=== PATIENT | male | born 1980 | race Hispanic/Latino ===

== ENCOUNTER 2018-02-08 23:15 | Emergency (ER) | payer SELFPAY ==
[2018-02-08] MEDS ORDERED: NA CHLORIDE 0.9% 1,000 ML ONE (23:39)
[2018-02-08] MEDS ORDERED: ONDANSETRON 4 MG/2 ML VIAL ONE (23:39)
[2018-02-08] MEDS ORDERED: MORPHINE 4 MG/ML SYR ONE (23:39)
[2018-02-08 23:52] LABS: Absolute Lymphocytes (CBC) 2.5 K/uL (0.7-4.9); Absolute Monocytes 0.6 K/uL (0.1-1.3); Absolute Neutrophil 4.7 K/uL (1.8-8.0); Eosinophils % 7.9 % (0-4.4); Lymphocytes % 29.5 % (15.3-44.8); MCH 29.8 pg (27.0-35.0); MCV 87.2 fL (80-100); MPV 8.4 fL (7.6-11.3); Monocytes % 7.3 % (3.3-12.3); RBC Red Blood Cell Count 5.74 M/uL (4.33-5.43)
[2018-02-09 00:04] LABS: Albumin 4.1 g/dL (3.4-5.0); Bilirubin Direct 0.1 mg/dL (0-0.2); Bilirubin Total 0.3 mg/dL (0.2-1.0); Potassium 3.1 mmol/L (3.5-5.1); Protein, Total 8.3 g/dL (6.4-8.2)
[2018-02-09] MEDS ORDERED: LIDOCAINE VISCOUS 2% SOLN 15 ML UDC ONE (00:22)
[2018-02-09] MEDS ORDERED: MAGNE/ALUM HYDROXD 30 ML UCUP ONE (00:22)
--- NOTE | 2018-02-09 01:48 | ER ---
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 Denies any nausea, vomiting or diarrhea. Pt is diaphoretic and moaning in pain. Transition of care: patient was not received from another setting of care. Onset of symptoms was February 08, 2018 at 22:30. Risk Assessment: Do you want to hurt yourself or someone else? Patient reports no desire to harm self or others. Initial Sepsis Screen: Does the patient meet any 2 criteria? No. Patient's initial sepsis screen is negative. Does the patient have a suspected source of infection? No. Patient's initial sepsis screen is negative. Care prior to arrival: None. 23:20 Acuity: ARASH 3 Triage Assessment: 23:32 General: Appears distressed, uncomfortable, Behavior is cooperative, appropriate for fc age, anxious, restless. Pain: Complains of pain in abdomen Pain currently is 10 out of 10 on a pain scale. Pain began 1 hour ago. Is continuous. EENT: No deficits noted. Neuro: Level of Consciousness is awake, alert, obeys commands, Oriented to person, place, time, situation. Cardiovascular: No deficits noted. Respiratory: No deficits noted. GI: Abdomen is flat, distended, Bowel sounds present X 4 quads. Reports lower abdominal pain, upper abdominal pain, Patient currently denies constipation, diarrhea, nausea, vomiting. : No deficits noted. Derm: Skin is intact, Skin is diaphoretic, Skin is normal, Skin temperature is warm. Musculoskeletal: Circulation, motion, and sensation intact. Capillary refill < 3 seconds. 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 - Social history:: Smoking status: Patient/guardian denies using tobacco, Patient uses alcohol, on a daily basis. 1-2 a day. - Ebola Screening: : Patient negative for fever greater than or equal to 101.5 degrees Fahrenheit, and additional compatible Ebola Virus Disease symptoms Patient denies exposure to infectious person Patient denies travel to an Ebola-affected area in the 21 days before illness onset. Screenin:20 Abuse screen: Denies threats or abuse. Nutritional screening: No deficits noted. Tuberculosis screening: No symptoms or risk factors identified. Fall Risk None identified. Assessment: 02/09 00:44 Reassessment: Patient and/or family updated on plan of care and expected duration. Pain ea level reassessed. Patient is alert, oriented x 3, equal unlabored respirations, skin warm/dry/pink. 01:55 Reassessment: Patient and/or family updated on plan of care and expected duration. Pain ea level reassessed. Patient is alert, oriented x 3, equal unlabored respirations, skin warm/dry/pink. 02:55 Reassessment: Patient and/or family updated on plan of care and expected duration. Pain ea level reassessed. Patient is alert, oriented x 3, equal unlabored respirations, skin warm/dry/pink. Discharge instructions given to patient, verbalized the understanding of instruction. Vital Signs: 02/08 23:20 BP 211 / 139; Pulse 85; Resp 20; Temp 97.4(O); Pulse Ox 100% on R/A; Weight 78.47 kg (R); Height 5 ft. 4 in. (162.56 cm) (R); Pain 10/10; 02/09 00:43 BP 150 / 99; Pulse 100; Resp 18; Pulse Ox 99% on R/A; ea 02:45 BP 145 / 90; Pulse 80; Resp 18; Temp 97.2; Pulse Ox 99% ; Pain 3/10; ea 02/08 23:20 Body Mass Index 29.70 (78.47 kg, 162.56 cm) ED Course: 02/08 23:16 Patient arrived in ED. am2 23:20 Arm band placed on Patient placed in an exam room, on a stretcher. fc 23:20 Patient has correct armband on for positive identification. Bed in low position. Call light in reach. Side rails up X 1. Pulse ox on. NIBP on. 23:29 Moralez Julio, MD is Attending Physician. gs 23:30 Triage completed. 23:30 Inserted saline lock: 18 gauge in right antecubital area, using aseptic technique. ,using aseptic technique. per Mayte GALAN Blood collected. 23:47 Patient moved to [place] via wheelchair. kw1 23:53 CT Stone Protocol In Process Unspecified. EDMS 23:54 CT completed. Patient tolerated procedure well. Patient moved back from MO. kw1 02/09 00:10 Mayte Hansen RN is Primary Nurse. ea 01:47 Goldy Calixto MD is Referral Physician. gs 02:55 No provider procedures requiring assistance completed. IV discontinued, intact, ea bleeding controlled, No redness/swelling at site. Pressure dressing applied. Administered Medications: 02/08 23:35 Drug: NS 0.9% 1000 ml Route: IV; Rate: 1 bolus; Site: right antecubital; 23:35 Drug: morphine 4 mg Route: IVP; Site: right antecubital; 23:35 Drug: Zofran 4 mg Route: IVP; Site: right antecubital; 02/09 00:22 Drug: GI Cocktail without - (Maalox Suspension 30 ml, Lidocaine Liquid 2 % 15 ea ml) Route: PO; Outcome: 01:48 Discharge ordered by . gs 02:55 Discharged to home ambulatory, with friend. ea 02:55 Condition: improved 02:55 Discharge instructions given to patient, Instructed on discharge instructions, follow up and referral plans. medication usage, Demonstrated understanding of instructions, follow-up care, medications, Prescriptions given X 1. 03:01 Patient left the ED. ea Signatures: Dispatcher [employer] EDMS Sharee Yeung RN RN Kiki Quigley Elena, RN RN ea Starr, Gregory, MD MD RomanMaricruz freemanly kw1
--- NOTE | 2018-02-09 01:48 | EDPHYS ---
Physician Documentation [facility] Name: Clem Mendoza Age: 37 yrs Sex: Male : 1980 Arrival Date: 02/08/2018 Time: 23:16 Bed 5 Private MD: ED Physician Julio Moralez HPI: 02/09 01:49 This 37 yrs old Male presents to ER via Wheelchair with complaints of gs Abdominal Pain. 01:49 The patient presents with abdominal pain that is diffuse. Onset: The symptoms/episode gs began/occurred acutely, just prior to arrival. The symptoms do not radiate. Associated signs and symptoms: Pertinent positives: nausea and vomiting, Pertinent negatives: shortness of breath. 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 - Social history:: Smoking status: Patient/guardian denies using tobacco, Patient uses alcohol, on a daily basis. 1-2 a day. - Ebola Screening: : Patient negative for fever greater than or equal to 101.5 degrees Fahrenheit, and additional compatible Ebola Virus Disease symptoms Patient denies exposure to infectious person Patient denies travel to an Ebola-affected area in the 21 days before illness onset. ROS: 02/09 01:52 All other systems are negative. gs Exam: 01:52 Head/Face: Normocephalic, atraumatic. Eyes: Pupils equal round and reactive to light, gs extra-ocular motions intact. Lids and lashes normal. Conjunctiva and sclera are non-icteric and not injected. Cornea within normal limits. Periorbital areas with no swelling, redness, or edema. ENT: Nares patent. No nasal discharge, no septal abnormalities noted. Tympanic membranes are normal and external auditory canals are clear. Oropharynx with no redness, swelling, or masses, exudates, or evidence of obstruction, uvula midline. Mucous membranes moist. Neck: Trachea midline, no thyromegaly or masses palpated, and no cervical lymphadenopathy. Supple, full range of motion without nuchal rigidity, or vertebral point tenderness. No Meningismus. Chest/axilla: Normal chest wall appearance and motion. Nontender with no deformity. No lesions are appreciated. Cardiovascular: Regular rate and rhythm with a normal S1 and S2. No gallops, murmurs, or rubs. Normal PMI, no JVD. No pulse deficits. Respiratory: Lungs have equal breath sounds bilaterally, clear to auscultation and percussion. No rales, rhonchi or wheezes noted. No increased work of breathing, no retractions or nasal flaring. Back: No spinal tenderness. No costovertebral tenderness. Full range of motion. Skin: Warm, dry with normal turgor. Normal color with no rashes, no lesions, and no evidence of cellulitis. MS/ Extremity: Pulses equal, no cyanosis. Neurovascular intact. Full, normal range of motion. Neuro: Awake and alert, GCS 15, oriented to person, place, time, and situation. Cranial nerves II-XII grossly intact. Motor strength 5/5 in all extremities. Sensory grossly intact. Cerebellar exam normal. Normal gait. 01:52 Constitutional: The patient appears alert, awake, uncomfortable. 01:52 Abdomen/GI: Palpation: mild abdominal tenderness, in all quadrants, rebound tenderness, is not appreciated. 01:52 ECG was reviewed by the Attending Physician. Vital Signs: 02/08 23:20 BP 211 / 139; Pulse 85; Resp 20; Temp 97.4(O); Pulse Ox 100% on R/A; Weight 78.47 kg fc (R); Height 5 ft. 4 in. (162.56 cm) (R); Pain 10/10; 02/09 00:43 BP 150 / 99; Pulse 100; Resp 18; Pulse Ox 99% on R/A; ea 02:45 BP 145 / 90; Pulse 80; Resp 18; Temp 97.2; Pulse Ox 99% ; Pain 3/10; ea 02/08 23:20 Body Mass Index 29.70 (78.47 kg, 162.56 cm) MDM: 00:03 Patient medically screened. 01:52 Differential diagnosis: bowel obstruction, gastritis, gastroesophageal reflux disease, gs non-specific abd pain, Peptic Ulcer Disease. Data reviewed: vital signs, nurses notes. Response to treatment: the patient's symptoms have markedly improved after treatment, and as a result, I will discharge patient. 02/08 23:29 Order name: Basic Metabolic Panel; Complete Time: 00:47 02/08 23:29 Order name: CBC with Diff; Complete Time: 00:47 02/08 23:29 Order name: Hepatic Function; Complete Time: 00:47 02/08 23:29 Order name: Lipase; Complete Time: 00:47 02/08 23:29 Order name: CT Stone Protocol 02/08 23:29 Order name: IV Saline Lock; Complete Time: 23:32 02/08 23:29 Order name: Labs collected and sent; Complete Time: 23:36 02/09 00:49 Order name: EKG; Complete Time: 00:49 02/09 00:49 Order name: EKG - Nurse/Tech; Complete Time: 01:48 EC:52 Rate is 70 beats/min. Rhythm is regular. IA interval is normal. QRS interval is normal. gs T waves are Normal. No ST changes noted. Clinical impression: Normal ECG. Interpreted by me. Administered Medications: 02/08 23:35 Drug: NS 0.9% 1000 ml Route: IV; Rate: 1 bolus; Site: right antecubital; 23:35 Drug: morphine 4 mg Route: IVP; Site: right antecubital; 23:35 Drug: Zofran 4 mg Route: IVP; Site: right antecubital; 02/09 00:22 Drug: GI Cocktail without - (Maalox Suspension 30 ml, Lidocaine Liquid 2 % 15 ea ml) Route: PO; Disposition: 02/09/18 01:48 Discharged to Home. Impression: Abdominal and pelvic pain. - Condition is Stable. - Discharge Instructions: Abdominal Pain, Adult, [id number], Managing Your Hypertension. - Prescriptions for Pepcid 20 mg Oral Tablet - take 1 tablet by ORAL route every 12 hours for 10 days; 20 tablet. - Medication Reconciliation Form, Thank You Letter, Antibiotic Education, Prescription Opioid Use form. - Follow up: Goldy Calixto MD; When: 2 - 3 days; Reason: Re-evaluation by your physician. Signatures: Dispatcher [employer] EDMS Sharee Yeung RN RN fc Antunez, Elena, RN RN ea Starr, Gregory, MD MD Corrections: (The following items were deleted from the chart) 03:01 01:48 02/09/2018 01:48 Discharged to Home. Impression: Abdominal and pelvic pain. ea Condition is Stable. Forms are Medication Reconciliation Form, Thank You Letter, Antibiotic Education, Prescription Opioid Use. Follow up: Goldy Calixto; When: 2 - 3 days; Reason: Re-evaluation by your physician. gs
[2018-02-09] MEDS ORDERED: ACETAMINOPHEN 500 MG TAB ONE (02:46)
--- NOTE | 2018-02-09 09:01 | RAD REPORT ---
EXAM DESCRIPTION: CT - Stone Protocol - 02/09/2018 4:37 am CLINICAL HISTORY: Severe abdominal pain A preliminary report was provided at the time of the study and reviewed prior to final report. COMPARISON: None. TECHNIQUE: Axial [address] imaging of the abdomen and pelvis was performed without IV contrast. No IV contrast was given because of allergy, abnormal renal function, patient refusal or physician re quest. No oral contrast. All CT scans are performed using dose optimization technique as appropriate and may include automated exposure control or mA/KV adjustment according to patient size. FINDINGS: Interstitial markings are mildly prominent and there is some minimal hazy opacification of the alveoli in each posterior gutter. Atelectasis is favored over pneumonia. No pneumothorax or pleu ral effusion. No pericardial effusion. Liver is upper normal in size. No focal liver lesion on noncontrast imaging. Attenuation is borderlin e for fatty infiltration. No splenomegaly or focal pancreatic process. Gallbladder and biliary tree a re also without suspicious finding. No hydronephrosis or suspicious renal mass. No significant adrenal finding. Isodense renal masses an d pyelonephritis cannot be excluded in the absence of IV contrast. The urinary bladder is without sig nificant finding. No dilated bowel loops or bowel wall thickening. No free air, free fluid or inflammatory stranding. N o hernia, mass or bulky lymphadenopathy. Appendix is not clearly defined. No direct or indirect evide nce for appendicitis. No acute bone finding. IMPRESSION: Non-contrast enhanced CT abdomen and pelvis imaging show no significant or suspicious fi nding. Full assessment is limited is the absence of IV contrast.
--- NOTE | 2018-02-10 06:54 | EKG ---
Test Date: 2018-02-09 Test Time: 01:21:32 Registered Route Associate: HILDA MEASUREMENT RESULTS: Intervals: Rate: 70 UT: 140 QRSD: 88 QT: 378 QTc: 408 [place]: P: 44 UT: 140 QRS: 52 T: 26 INTERPRETIVE STATEMENTS: Sinus rhythm with marked sinus arrhythmia Otherwise normal ECG No previous ECG available for comparison Electronically Signed On 02-10-18 06:51:20 CDT by Williams Soliz
== END 2018-02-09 03:01 | disposition home or self-care (01) ==
LOC: ER 23:15
DX: R10.2 Pelvic and perineal pain (principal)
CPT/HCPCS: 36415; 74176; 76377; 80048; 80076; 83690; 85025; 93005; 96374; 96375; 99284; J2405; J7030

== ENCOUNTER 2018-02-09 21:11 | Emergency (ER) | payer SELFPAY ==
[2018-02-09 22:57] LABS: Absolute Lymphocytes (CBC) 0.8 K/uL (0.7-4.9); Absolute Monocytes 0.7 K/uL (0.1-1.3); Absolute Neutrophil 11.2 K/uL (1.8-8.0); Basophils % 0.5 % (0-1.3); Eosinophils % 1.7 % (0-4.4); Hematocrit 47.3 % (39.6-49.0); Lymphocytes % 6.1 % (15.3-44.8); MCH 29.9 pg (27.0-35.0); MCV 85.6 fL (80-100); Monocytes % 5.2 % (3.3-12.3); RBC Red Blood Cell Count 5.53 M/uL (4.33-5.43)
[2018-02-09] MEDS ORDERED: NA CHLORIDE 0.9% 1,000 ML ONE (23:00)
[2018-02-09 23:15] LABS: Albumin 3.7 g/dL (3.4-5.0); Bilirubin Direct 0.2 mg/dL (0-0.2); Bilirubin Total 0.6 mg/dL (0.2-1.0); Potassium 3.7 mmol/L (3.5-5.1); Protein, Total 7.6 g/dL (6.4-8.2); Troponin (Emerg Dept Use Only) 0.02 ng/mL (0.0-0.045)
[2018-02-10 00:09] LABS: Blood Morphology Comment NOT SEEN (NOT SEEN); Platelet Estimate ADEQ
[2018-02-10] MEDS ORDERED: FAMOTIDINE 20 MG/2 ML VIAL IV ONE (00:16)
[2018-02-10 04:04] LABS: Urine Blood NEGATIVE (NEG); Urine Glucose NEGATIVE (NEG); Urine Protein NEGATIVE (NEG); Urine Specific Gravity 1.015 (1.005-1.030); Urine pH 7.5 (5.0-7.0)
--- NOTE | 2018-02-10 04:43 | ER ---
Nurse's Notes [facility] Name: Clem Mendoza Age: 37 yrs Sex: Male : 1980 Arrival Date: 02/09/2018 Time: 21:14 Bed 19 Private MD: Diagnosis: Unspecified abdominal pain Presentation: 02/09 21:24 Presenting complaint: Patient states: seen yesterday in ER by DR. Moralez with same s/s ak1 of abd pain. pt started pepcid with no relief. Transition of care: patient was not received from another setting of care. Onset of symptoms is unknown. Risk Assessment: Do you want to hurt yourself or someone else? Patient reports no desire to harm self or others. Care prior to arrival: None. 21:24 Method Of Arrival: Ambulatory ak1 21:24 Acuity: ARASH 3 ak1 23:08 Initial Sepsis Screen: Does the patient meet any 2 criteria? No. Patient's initial ea sepsis screen is negative. Does the patient have a suspected source of infection? No. Patient's initial sepsis screen is negative. Triage Assessment: 21:25 General: Appears uncomfortable, Behavior is calm, cooperative. Pain: Complains of pain ak1 in abdomen. 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 - Social history:: Smoking status: Patient/guardian denies using tobacco. - Ebola Screening: : No symptoms or risks identified at this time. Screenin:27 Abuse screen: Denies threats or abuse. Denies injuries from another. Nutritional ak1 screening: No deficits noted. Tuberculosis screening: No symptoms or risk factors identified. Fall Risk None identified. Assessment: 23:07 General: Appears uncomfortable, Behavior is calm, cooperative, appropriate for age. ea Pain: Complains of pain in epigastric area, right upper quadrant and left upper quadrant Pain currently is 8 out of 10 on a pain scale. Quality of pain is described as burning, Pain began 1 hour ago. Is continuous. Neuro: Level of Consciousness is awake, alert, obeys commands, Oriented to person, place, time, situation. Cardiovascular: Heart tones S1 S2 present Patient's skin is warm and dry. Respiratory: Airway is patent Respiratory effort is even, unlabored, Respiratory pattern is regular, symmetrical, Breath sounds are clear bilaterally. GI: Abdomen is non-distended, Bowel sounds present X 4 quads. Abd is soft and non tender X 4 quads. : No signs and/or symptoms were reported regarding the genitourinary system. Derm: Skin is pink, warm \T\ dry. 02/10 00:19 Reassessment: Patient and/or family updated on plan of care and expected duration. Pain ea level reassessed. Patient is alert, oriented x 3, equal unlabored respirations, skin warm/dry/pink. 01:02 Reassessment: Patient and/or family updated on plan of care and expected duration. Pain ea level reassessed. Patient is alert, oriented x 3, equal unlabored respirations, skin warm/dry/pink. 02:34 Reassessment: Patient and/or family updated on plan of care and expected duration. Pain ea level reassessed. Patient is alert, oriented x 3, equal unlabored respirations, skin warm/dry/pink. awaiting on results. 03:14 Reassessment: Patient and/or family updated on plan of care and expected duration. Pain ea level reassessed. Patient is alert, oriented x 3, equal unlabored respirations, skin warm/dry/pink. Vital Signs: 02/09 21:25 BP 163 / 102; Pulse 64; Resp 18; Temp 98.3(O); Pulse Ox 97% on R/A; Weight 90.72 kg ak1 (R); Height 5 ft. 7 in. (170.18 cm) (R); Pain 7/10; 23:30 BP 129 / 95; Pulse 65; Resp 18; Pulse Ox 97% on R/A; ea 02/10 00:21 BP 148 / 91; Pulse 65; Resp 18; Pulse Ox 97% on R/A; ea 01:02 BP 150 / 87; Pulse 62; Resp 18; Pulse Ox 97% on R/A; ea 02:09 BP 132 / 86; Pulse 66; Resp 18; Pulse Ox 99% ; ea 02:53 BP 135 / 89; Pulse 66; Resp 16; Pulse Ox 99% on R/A; mt 04:07 BP 124 / 84; Pulse 64; Resp 16 S; Pulse Ox 99% ; ea 04:35 Temp 97.8(O); ea 02/09 21:25 Body Mass Index 31.32 (90.72 kg, 170.18 cm) ak1 ED Course: 02/09 21:14 Patient arrived in ED. ds1 21:24 Triage completed. ak1 21:25 Arm band placed on Patient placed in waiting room, Patient notified of wait time. ak1 21:27 Patient has correct armband on for positive identification. ak1 21:53 Mayte Hansen, ANGELIA is Primary Nurse. ea 22:00 Joaquin Stanton NP is PHCP. pm1 22:00 Julio Moralez MD is Attending Physician. pm1 22:50 Initial lab(s) drawn, by me, sent to lab. Inserted saline lock: 18 gauge in right aa1 antecubital area, using aseptic technique. Blood collected. 23:[address] via wheelchair. kw1 23:56 CT Abd/Pelvis - W/Contrast: IV contrast In Process Unspecified. EDMS 23:57 CT completed. Patient tolerated procedure well. Patient moved back from CT. kw1 02/10 04:58 No provider procedures requiring assistance completed. IV discontinued, intact, ea bleeding controlled, No redness/swelling at site. Pressure dressing applied. Administered Medications: 02/09 23:09 Drug: NS 0.9% 1000 ml Route: IV; Rate: 1000 ml; Site: right antecubital; ea 02/10 01:30 Follow up: Response: No adverse reaction; IV Status: Completed infusion; IV Intake: ea 1000ml 00:18 Drug: Pepcid 20 mg Route: IVP; Site: right antecubital; ea 02:29 Follow up: Response: No adverse reaction; Pain is decreased ea 04:46 Drug: GI Cocktail without - (Maalox Suspension 30 ml, Lidocaine Liquid 2 % 15 ea ml) Route: PO; 04:58 Follow up: Response: No adverse reaction ea Intake: 01:30 IV: 1000ml; Total: 1000ml. ea Outcome: 04:43 Discharge ordered by . pm1 04:58 Discharged to home ambulatory. ea 04:58 Condition: improved 04:58 Discharge instructions given to patient, Instructed on discharge instructions, follow up and referral plans. Demonstrated understanding of instructions, follow-up care. 05:00 Patient left the ED. chucho Signatures: Dispatcher [employer] EDHannah Garcia RN RN aa1 Glenis Mobley ds1 Sydni Crowe RN RN ak1 Joaquin Stanton, INSTRUCTOR PSYCHIATRIC AIDE INSTRUCTOR PSYCHIATRIC AIDE pm1 Nikki Polk mt, Elena, RN RN ea Wilhelm, Kimberly kw1 Corrections: (The following items were deleted from the chart) 05:00 04:59 Temp 97.8F Oral; chucho rankin
--- NOTE | 2018-02-10 04:44 | EDPHYS ---
Physician Documentation [facility] Name: Clem Mendoza Age: 37 yrs Sex: Male : 1980 Arrival Date: 02/09/2018 Time: 21:14 Bed 19 Private MD: ED Physician Julio Moralez HPI: 02/10 03:17 This 37 yrs old Male presents to ER via Ambulatory with complaints of pm1 Abdominal Pain. 03:17 The patient presents with abdominal pain in the epigastric area. pm1 03:17 Onset: The symptoms/episode began/occurred yesterday. The symptoms do not radiate. pm1 Associated signs and symptoms: Pertinent negatives: nausea, vomiting, and diarrhea, chest pain, dysuria, fever, shortness of breath. The symptoms are described as achy. Modifying factors: The symptoms are alleviated by nothing, the symptoms are aggravated by nothing. Severity of pain: in the emergency department the pain is unchanged. The patient has experienced a previous episode, Last year. The patient has been recently seen at the [facility] Emergency Department, yesterday, for similar complaints labs were performed, CT scan was performed. . Patient seen here in the ER yesterday and discharged home with PPI. Patient reports no improvement with medications and that his epigastric pain is the same. 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 - Social history:: Smoking status: Patient/guardian denies using tobacco. - Ebola Screening: : No symptoms or risks identified at this time. ROS: 02/10 03:17 Constitutional: Negative for fever, chills, and weight loss, Eyes: Negative for injury, pm1 pain, redness, and discharge, ENT: Negative for injury, pain, and discharge, Neck: Negative for injury, pain, and swelling, Cardiovascular: Negative for chest pain, palpitations, and edema, Respiratory: Negative for shortness of breath, cough, wheezing, and pleuritic chest pain. Back: Negative for injury and pain, : Negative for injury, bleeding, discharge, and swelling, MS/Extremity: Negative for injury and deformity, Skin: Negative for injury, rash, and discoloration, Neuro: Negative for headache, weakness, numbness, tingling, and seizure. Abdomen/GI: Positive for abdominal pain, Negative for nausea, vomiting, and diarrhea. Exam: 03:17 Constitutional: This is a well developed, well nourished patient who is awake, alert, pm1 and in no acute distress. Head/Face: Normocephalic, atraumatic. Eyes: Pupils equal round and reactive to light, extra-ocular motions intact. Lids and lashes normal. Conjunctiva and sclera are non-icteric and not injected. Cornea within normal limits. Periorbital areas with no swelling, redness, or edema. ENT: Nares patent. No nasal discharge, no septal abnormalities noted. Tympanic membranes are normal and external auditory canals are clear. Oropharynx with no redness, swelling, or masses, exudates, or evidence of obstruction, uvula midline. Mucous membranes moist. Neck: Trachea midline, no thyromegaly or masses palpated, and no cervical lymphadenopathy. Supple, full range of motion without nuchal rigidity, or vertebral point tenderness. No Meningismus. Chest/axilla: Normal chest wall appearance and motion. Nontender with no deformity. No lesions are appreciated. Cardiovascular: Regular rate and rhythm with a normal S1 and S2. No gallops, murmurs, or rubs. Normal PMI, no JVD. No pulse deficits. Respiratory: Lungs have equal breath sounds bilaterally, clear to auscultation and percussion. No rales, rhonchi or wheezes noted. No increased work of breathing, no retractions or nasal flaring. 03:17 Back: No spinal tenderness. No costovertebral tenderness. Full range of motion. Skin: Warm, dry with normal turgor. Normal color with no rashes, no lesions, and no evidence of cellulitis. MS/ Extremity: Pulses equal, no cyanosis. Neurovascular intact. Full, normal range of motion. 03:17 Abdomen/GI: Inspection: abdomen appears normal, Bowel sounds: normal, Palpation: soft, mild abdominal tenderness, in the epigastric area, mass, is not appreciated, rebound tenderness, is not appreciated. 03:17 Neuro: Orientation: is normal, Motor: is normal, moves all fours. 03:17 ECG: NSR, Normal ECG, 70 BPM pm1 Vital Signs: 02/09 21:25 BP 163 / 102; Pulse 64; Resp 18; Temp 98.3(O); Pulse Ox 97% on R/A; Weight 90.72 kg ak1 (R); Height 5 ft. 7 in. (170.18 cm) (R); Pain 7/10; 23:30 BP 129 / 95; Pulse 65; Resp 18; Pulse Ox 97% on R/A; ea 02/10 00:21 BP 148 / 91; Pulse 65; Resp 18; Pulse Ox 97% on R/A; ea 01:02 BP 150 / 87; Pulse 62; Resp 18; Pulse Ox 97% on R/A; ea 02:09 BP 132 / 86; Pulse 66; Resp 18; Pulse Ox 99% ; ea 02:53 BP 135 / 89; Pulse 66; Resp 16; Pulse Ox 99% on R/A; mt 04:07 BP 124 / 84; Pulse 64; Resp 16 S; Pulse Ox 99% ; ea 04:35 Temp 97.8(O); ea 02/09 21:25 Body Mass Index 31.32 (90.72 kg, 170.18 cm) ak1 MDM: 02/09 22:14 Patient medically screened. pm1 02/10 03:20 Data reviewed: vital signs. Data interpreted: Pulse oximetry: on room air is 99 %. pm1 Interpretation: normal. 04:43 Counseling: I had a detailed discussion with the patient and/or guardian regarding: the pm1 historical points, exam findings, and any diagnostic results supporting the discharge/admit diagnosis, lab results, radiology results, the need for outpatient follow up, to return to the emergency department if symptoms worsen or persist or if there are any questions or concerns that arise at home. 02/09 22:21 Order name: Basic Metabolic Panel; Complete Time: 23:31 pm1 02/09 22:21 Order name: CBC with Diff; Complete Time: 00:14 pm1 02/09 22:21 Order name: Hepatic Function; Complete Time: 23:31 pm1 02/09 22:21 Order name: Lipase; Complete Time: 23:31 pm1 02/09 22:21 Order name: Troponin (emerg Dept Use Only); Complete Time: 23:31 pm1 02/09 23:01 Order name: Manual Differential; Complete Time: 00:14 EDMS 02/09 22:21 Order name: IV Saline Lock; Complete Time: 22:47 pm1 02/09 22:21 Order name: Labs collected and sent; Complete Time: 22:47 pm1 02/09 22:21 Order name: EKG; Complete Time: 22:21 pm1 02/09 22:21 Order name: CT Abd/Pelvis - W/Contrast: IV contrast pm1 02/10 03:15 Order name: Urine Dipstick--Ancillary (enter results); Complete Time: 04:07 ms 02/09 22:21 Order name: Urine Dipstick-Ancillary (obtain specimen); Complete Time: 03:29 pm1 02/09 22:21 Order name: EKG - Nurse/Tech; Complete Time: 23:06 pm1 Administered Medications: 02/09 23:09 Drug: NS 0.9% 1000 ml Route: IV; Rate: 1000 ml; Site: right antecubital; ea 02/10 01:30 Follow up: Response: No adverse reaction; IV Status: Completed infusion; IV Intake: ea 1000ml 00:18 Drug: Pepcid 20 mg Route: IVP; Site: right antecubital; ea 02:29 Follow up: Response: No adverse reaction; Pain is decreased ea 04:46 Drug: GI Cocktail without - (Maalox Suspension 30 ml, Lidocaine Liquid 2 % 15 ea ml) Route: PO; 04:58 Follow up: Response: No adverse reaction ea Disposition: 02/10/18 04:43 Discharged to Home. Impression: Unspecified abdominal pain. - Condition is Stable. - Discharge Instructions: Abdominal Pain, Adult, Gastroesophageal Reflux Disease, Adult. - Medication Reconciliation Form, Thank You Letter, Antibiotic Education, Prescription Opioid Use form. - Follow up: Emergency Department; When: As needed; Reason: Worsening of condition. Follow up: Private Physician; When: 2 - 3 days; Reason: Recheck today's complaints, Continuance of care, Re-evaluation by your physician. - Problem is new. - Symptoms have improved. Signatures: Dispatcher [employer] EDMN Sydni Crowe RN RN ak1 Joaquin Stanton, GRUBBER GRUBBER pm1 Mayte Hansen RN RN ea Corrections: (The following items were deleted from the chart) 05:00 04:43 02/10/2018 04:43 Discharged to Home. Impression: Unspecified abdominal pain. ea Condition is Stable. Forms are Medication Reconciliation Form, Thank You Letter, Antibiotic Education, Prescription Opioid Use. Follow up: Emergency Department; When: As needed; Reason: Worsening of condition. Follow up: Private Physician; When: 2 - 3 days; Reason: Recheck today's complaints, Continuance of care, Re-evaluation by your physician. Problem is new. Symptoms have improved. pm1
[2018-02-10] MEDS ORDERED: MAGNE/ALUM HYDROXD 30 ML UCUP ONE (04:55)
[2018-02-10] MEDS ORDERED: LIDOCAINE VISCOUS 2% SOLN 15 ML UDC ONE (04:56)
--- NOTE | 2018-02-10 06:51 | EKG ---
Test Date: 2018-02-09 Test Time: 22:58:57 Tanbark Peeler: HILDA MEASUREMENT RESULTS: Intervals: Rate: 70 TN: 132 QRSD: 88 QT: 380 QTc: 410 [place]: P: 33 TN: 132 QRS: 31 T: 15 INTERPRETIVE STATEMENTS: Normal sinus rhythm Normal ECG Compared to ECG 02/09/2018 01:21:32 Sinus arrhythmia no longer present Electronically Signed On 02-10-18 06:50:50 CDT by Williams Soliz
--- NOTE | 2018-02-10 07:57 | RAD REPORT ---
EXAM DESCRIPTION: CT - Abdomen Pelvis W Contrast - 02/10/2018 4:23 am CLINICAL HISTORY: Abdominal pain A preliminary report was provided at the time of the study and reviewed prior to final report. COMPARISON: CT study February 08 TECHNIQUE: Biphasic, helical CT imaging of the abdomen and pelvis was performed following 100 ml non -ionic IV contrast. Oral contrast was given. All CT scans are performed using dose optimization technique as appropriate and may include automated exposure control or mA/KV adjustment according to patient size. FINDINGS: Minimal lung base atelectasis change. No pleural effusion. No pericardial effusion. The liver, spleen, and pancreas show no suspicious findings. Liver attenuation is borderline fatty in filtrated. No gallbladder or biliary tree abnormality. Gallstones can be occult on CT imaging. Symmetric renal function is seen with no hydronephrosis or suspicious renal mass. No pyelonephritis o r acute renal parenchymal process. No adrenal abnormality. Bladder, prostate gland and seminal vesicl es are normal range. No dilated bowel loops or bowel wall thickening. No appendicitis or acute GI process. No free air, fr ee fluid or inflammatory stranding. No hernia, mass or bulky lymphadenopathy. No acute bone findings. L5-S1 facet joint degenerative changes present. 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 IMPRESSION: Contrast enhanced CT abdomen and pelvis showing no significant or suspicious finding. N o significant change from comparison.
== END 2018-02-10 05:00 | disposition home or self-care (01) ==
LOC: ER 21:11
DX: R10.13 Epigastric pain (principal)
CPT/HCPCS: 36415; 74177; 80048; 80076; 81003; 83690; 84484; 85025; 93005; 96361; 96374; 99284; J7030; Q9967